=== PATIENT | female | born 1955 | race Caucasian/White ===

== ENCOUNTER 2019-11-06 11:39 | Emergency (ER) | payer BC ==
[~2019-11-06] VITALS: Ht 154.9 cm; Wt 75.3 kg
--- OUTSIDE RECORDS SUMMARY | 2019-11-06 11:42 | XMS ---
PreManage Notification: GABI MIRANDA Security Livestock Nutritionist Events No recent Security Events currently on file [facility] There are no care providers on record at this time. Mary has no Care Guidelines for this patient. Homero VISIT COUNT (12 MO.) 1 SE[facility] TOTAL 1 NOTE: Visits indicate total known visits. ED/UCC VISIT TRACKING (12 MO.) 11/06/2019 11:40 [facility] [place] TYPE: Emergency COMPLAINT: - RECTAL BLEEDING, ABD PAIN INPATIENT VISIT TRACKING (12 MO.) No inpatient visits to display in this time frame [id number]
== END 2019-11-06 14:00 | disposition home or self-care (01) ==
LOC: ED 11:39
DX: K92.1 Melena (principal); I10 Essential (primary) hypertension; E78.5 Hyperlipidemia, unspecified; Z87.891 Personal history of nicotine dependence; Z88.0 Allergy status to penicillin; Z88.2 Allergy status to sulfonamides
CPT/HCPCS: 85025; 99284

== ENCOUNTER 2021-04-19 19:00 | Emergency (ER) | payer BC ==
[~2021-04-19] VITALS: Ht 154.9 cm; Wt 64.9 kg
--- OUTSIDE RECORDS SUMMARY | 2021-04-19 19:02 | XMS ---
PreManage Notification: GABI MIRANDA Security Sanitation Worker Events No recent Security Events currently on file CRITERIA MET - [facility] CARE PROVIDERS CRAIG MCMANUS Physician Straightening Roll Operator 11/08/2019-Current PHONE: Unknown Mary has no Care Guidelines for this patient. [facility] VISIT COUNT (12 MO.) 1 SEAMUS Mcarthur TOTAL 1 NOTE: Visits indicate total known visits. ED/UCC VISIT TRACKING (12 MO.) 04/19/2021 19:00 [facility] [place] TYPE: Emergency COMPLAINT: - ABDOMINAL AND BACK PAIN INPATIENT VISIT TRACKING (12 MO.) No inpatient visits to display in this time frame [id number]
[2021-04-19] MEDS ORDERED: LOSARTAN POTAS100 MG PO (19:38)
[2021-04-19] MEDS ORDERED: METOPROLOL TART50 MG PO (19:39)
[2021-04-19] MEDS ORDERED: CETIRIZINE HCL10 MG PO (19:39)
[2021-04-19] MEDS ORDERED: METFORMIN HCL500 MG PO (19:39)
[2021-04-19] MEDS ORDERED: IMIPRAMINE HCL50 MG PO (19:39)
[2021-04-19] MEDS ORDERED: ATORVASTATIN CA40 MG PO (19:39)
[2021-04-19] MEDS ORDERED: ESCITALOPRAM OX10 MG PO (19:40)
[2021-04-19] MEDS ORDERED: OXYBUTYNIN CHLOR5 MG PO (19:40)
[2021-04-19] MEDS ORDERED: FLUTICASONE PRO16 GM NAS (19:40)
== END 2021-04-19 22:47 | disposition home or self-care (01) ==
LOC: ED 19:00
DX: R10.13 Epigastric pain (principal); I10 Essential (primary) hypertension; E78.5 Hyperlipidemia, unspecified; I71.4 Abdominal aortic aneurysm, without rupture; Z87.891 Personal history of nicotine dependence; Z88.0 Allergy status to penicillin; Z88.2 Allergy status to sulfonamides; Z88.8 Allergy status to other drugs, medicaments and biological substances; Z79.899 Other long term (current) drug therapy; Z79.84 Long term (current) use of oral hypoglycemic drugs
CPT/HCPCS: 80053; 81001; 83690; 85025; 85379; 99284

== ENCOUNTER 2022-03-24 17:06 | Emergency (ER) | payer OTHER ==
[~2022-03-24] VITALS: Ht 154.9 cm; Wt 67.1 kg
[~2022-03-24 17:06] MED LIST: ATORVASTATIN CA40 MG PO; CETIRIZINE HCL10 MG PO; ESCITALOPRAM OX10 MG PO; FLUTICASONE PRO16 GM NAS; IMIPRAMINE HCL50 MG PO; LOSARTAN POTAS100 MG PO; METFORMIN HCL500 MG PO; METOPROLOL TART50 MG PO; OXYBUTYNIN CHLOR5 MG PO
--- OUTSIDE RECORDS SUMMARY | 2022-03-24 17:10 | XMS ---
PreManage Notification: GABI MIRANDA Security Business Associate Events No recent Security Events currently on file CRITERIA MET - [facility] CARE PROVIDERS CRAIG MCMANUS Physician Mfts 11/08/2019-Current PHONE: Unknown Mary has no Care Guidelines for this patient. [facility] VISIT COUNT (12 MO.) 2 SEAMUS Mcarthur TOTAL 2 NOTE: Visits indicate total known visits. ED/UCC VISIT TRACKING (12 MO.) 03/24/2022 17:07 [facility] [place] TYPE: Emergency COMPLAINT: - LEGS ARE PAINFUL 04/19/2021 19:00 [facility] [place] TYPE: Emergency COMPLAINT: - ABDOMINAL AND BACK PAIN DIAGNOSES: - Epigastric pain - Abdominal aortic aneurysm, without rupture - Allergy status to sulfonamides - Other senior living (current) drug therapy - Allergy status to penicillin - Essential (primary) hypertension - Allergy status to other drugs, medicaments and biological substances - Hyperlipidemia, unspecified - Personal history of nicotine dependence - alf (current) use of oral hypoglycemic drugs INPATIENT VISIT TRACKING (12 MO.) No inpatient visits to display in this time frame [id number]
[2022-03-24] MEDS ORDERED: HYDROCHLOROTH12.5 MG PO (17:25)
[2022-03-24] MEDS ORDERED: GABAPENTIN300 MG PO (17:25)
[2022-03-24] MEDS ORDERED: ACYCLOVIR400 MG PO (17:25)
== END 2022-03-24 23:06 | disposition home or self-care (01) ==
LOC: ED 17:06
DX: M79.604 Pain in right leg (principal); M79.605 Pain in left leg; G89.29 Other chronic pain; M54.50 Low back pain, unspecified; I10 Essential (primary) hypertension; E78.5 Hyperlipidemia, unspecified; Z87.891 Personal history of nicotine dependence; Z91.041 Radiographic dye allergy status; Z88.0 Allergy status to penicillin; Z88.2 Allergy status to sulfonamides; Z79.899 Other long term (current) drug therapy; Z79.84 Long term (current) use of oral hypoglycemic drugs
CPT/HCPCS: 36415; 71275; 74174; 80053; 85025; 99284-25; J1200; J2930; Q9967

== ENCOUNTER 2022-09-27 13:55 | Emergency (ER) | payer MEDICARE, OTHER ==
[~2022-09-27] VITALS: Ht 154.9 cm; Wt 69.4 kg
[~2022-09-27 13:55] MED LIST changes: +ACYCLOVIR400 MG PO; +GABAPENTIN300 MG PO; +HYDROCHLOROTH12.5 MG PO
--- OUTSIDE RECORDS SUMMARY | 2022-09-27 13:58 | XMS ---
PreManage Notification: GABI MIRANDA Security Skin Care Specialist Events No recent Security Events currently on file CRITERIA MET - [facility] CARE PROVIDERS CRAIG MCMANUS Physician Life Science Research Assistant 11/08/2019-Current PHONE: Unknown Mary has no Care Guidelines for this patient. [facility] VISIT COUNT (12 MO.) 2 SEAMUS Mcarthur TOTAL 2 NOTE: Visits indicate total known visits. ED/UCC VISIT TRACKING (12 MO.) 09/27/2022 13:57 [facility] [place] TYPE: Emergency COMPLAINT: - UPPER ABD/BACK PAIN 03/24/2022 17:07 [facility] [place] TYPE: Emergency COMPLAINT: - LEGS ARE PAINFUL DIAGNOSES: - Low back pain, unspecified - Personal history of nicotine dependence - Other intermodal truck driver (current) drug therapy - Other chronic pain - Allergy status to penicillin - Allergy status to sulfonamides - Pain in left leg - Localized edema - [facility] (current) use of oral hypoglycemic drugs - Radiographic dye allergy status - Hyperlipidemia, unspecified - Pain in right leg - Essential (primary) hypertension INPATIENT VISIT TRACKING (12 MO.) No inpatient visits to display in this time frame [id number]
[2022-09-27] MEDS ORDERED: ONDANSETRON ODT8 MG PO (19:06)
[2022-09-27] MEDS ORDERED: OXYCODONE HCL5 MG PO (19:06)
== END 2022-09-27 19:18 | disposition home or self-care (01) ==
LOC: ED 13:55
DX: K83.1 Obstruction of bile duct (principal); I10 Essential (primary) hypertension; E78.5 Hyperlipidemia, unspecified; Z87.891 Personal history of nicotine dependence; Z88.0 Allergy status to penicillin; Z88.2 Allergy status to sulfonamides; Z91.041 Radiographic dye allergy status; Z79.899 Other long term (current) drug therapy; Z79.84 Long term (current) use of oral hypoglycemic drugs
CPT/HCPCS: 36415; 74177; 80053; 81003; 83690; 85025; 96361; 96374; 96375; 99284-25; J1200; J2405; J7030; Q9967

== ENCOUNTER 2023-06-05 23:45 | Emergency (ER) | payer MEDICARE, OTHER ==
[~2023-06-05] VITALS: Ht 154.9 cm; Wt 69.4 kg
[~2023-06-05 23:45] MED LIST changes: +ONDANSETRON ODT8 MG PO; +OXYCODONE HCL5 MG PO
--- OUTSIDE RECORDS SUMMARY | 2023-06-05 23:49 | XMS ---
PreManage Notification: GABI MIRANDA Security Cabin Worker Events No recent Security Events currently on file CRITERIA MET - [facility] CARE PROVIDERS CRAIG MCMANUS Physician Senior Game Designer 11/08/2019-Current PHONE: Unknown Mary has no Care Guidelines for this patient. [facility] VISIT COUNT (12 MO.) 2 SEAMUS Mcarthur TOTAL 2 NOTE: Visits indicate total known visits. ED/UCC VISIT TRACKING (12 MO.) 06/05/2023 23:46 [facility] [place] TYPE: Emergency COMPLAINT: - RECTAL BLEEDING 09/27/2022 13:57 [facility] [place] TYPE: Emergency COMPLAINT: - UPPER ABD/BACK PAIN DIAGNOSES: - Allergy status to penicillin - Allergy status to sulfonamides - Essential (primary) hypertension - Hyperlipidemia, unspecified - halfway (current) use of oral hypoglycemic drugs - Obstruction of bile duct - Other long wall shear operator (current) drug therapy - Personal history of nicotine dependence - Radiographic dye allergy status - Upper abdominal pain, unspecified INPATIENT VISIT TRACKING (12 MO.) No inpatient visits to display in this time frame [id number]
[2023-06-06 00:59] VITALS: BP 120/74
== END 2023-06-06 01:02 | disposition home or self-care (01) ==
LOC: ED 23:45
DX: K64.9 Unspecified hemorrhoids (principal); I10 Essential (primary) hypertension; R73.03 Prediabetes; E78.5 Hyperlipidemia, unspecified; Z87.891 Personal history of nicotine dependence; Z88.0 Allergy status to penicillin; Z88.2 Allergy status to sulfonamides; Z91.041 Radiographic dye allergy status; Z79.899 Other long term (current) drug therapy; Z79.84 Long term (current) use of oral hypoglycemic drugs
CPT/HCPCS: 99282

== ENCOUNTER 2023-09-17 15:48 | Emergency (ER) | payer MEDICARE ==
[~2023-09-17] VITALS: Ht 154.9 cm; Wt 73.8 kg
--- OUTSIDE RECORDS SUMMARY | 2023-09-17 15:51 | XMS ---
PreManage Notification: GABI MIRANDA Security Hydrotel Operator Events No recent Security Events currently on file CRITERIA MET - [facility] CARE PROVIDERS CRAIG MCMANUS Physician Gas Fitter 11/08/2019-Current PHONE: Unknown Mary has no Care Guidelines for this patient. [facility] VISIT COUNT (12 MO.) 3 SEAMUS Mcarthur TOTAL 3 NOTE: Visits indicate total known visits. ED/UCC VISIT TRACKING (12 MO.) 09/17/2023 15:49 [facility] [place] TYPE: Emergency COMPLAINT: - ABD PAIN, SOB, COUGH 06/05/2023 23:46 [facility] [place] TYPE: Emergency COMPLAINT: - RECTAL BLEEDING DIAGNOSES: - Allergy status to penicillin - Allergy status to sulfonamides - Essential (primary) hypertension - Hyperlipidemia, unspecified - termite inspector (current) use of oral hypoglycemic drugs - Other superintendent container terminal (current) drug therapy - Personal history of nicotine dependence - Prediabetes - Radiographic dye allergy status - Unspecified hemorrhoids 09/27/2022 13:57 [facility] [place] TYPE: Emergency COMPLAINT: - UPPER ABD/BACK PAIN DIAGNOSES: - Allergy status to penicillin - Allergy status to sulfonamides - Essential (primary) hypertension - Hyperlipidemia, unspecified - termite inspector (current) use of oral hypoglycemic drugs - Obstruction of bile duct - Other superintendent container terminal (current) drug therapy - Personal history of nicotine dependence - Radiographic dye allergy status - Upper abdominal pain, unspecified INPATIENT VISIT TRACKING (12 MO.) No inpatient visits to display in this time frame [id number]
[2023-09-17] MEDS ORDERED: ondansetron HCL 4 MG/2 ML VIAL IV ONE (16:15)
[2023-09-17 16:22] LABS: BASOPHILS 1.2 % (0-2); EOSINOPHILS 5.9 % (0-6); HEMATOCRIT 39.7 % (35.0-50.0); HEMOGLOBIN 13.2 g/dL (12.0-18.0); LYMPHOCYTES 34.1 % (24-44); MCH 29.3 (27-36); MCHC 33.4 g/dl (30-36); MCV 87.8 fl (81-99); MONOCYTES 9.4 % (0-12); NEUTROPHILS 49.4 % (39-80); PLATELET COUNT 174 K/uL (140-440); RBC 4.52 M/ul (4.3-5.7); RDW 15.2 (10.5-15.0)
[2023-09-17 16:33] LABS: ALBUMIN 3.1 g/dL (3.4-5.0); ALBUMIN/GLOBULIN RATIO 0.94 (1.1-2.4); ANION GAP 11.6 (7-21); BILIRUBIN, TOTAL 0.5 ng/dL (0.2-1.0); BUN/CREATININE RATIO 25.6 (6.0-28.6); CALCIUM 10.3 mg/dL (8.5-10.1); CREATININE, SERUM 0.82 mg/dL (0.55-1.02); POTASSIUM 3.6 mmol/L (3.5-5.1); PROTEIN, TOTAL 6.4 g/dL (6.4-8.2)
[2023-09-17] MEDS ORDERED: diphenhydrAMINE HCL 50 MG/ML VIAL IV ONE (17:00)
[2023-09-17 18:30] LABS: BILIRUBIN, URINE NEGATIVE (negative); BLOOD/HGB, URINE NEGATIVE (Negative); KETONE, URINE NEGATIVE (Negative); LEUK ESTERASE, URINE NEGATIVE (negative); NITRITE, URINE NEGATIVE (negative)
[2023-09-17 18:57] VITALS: BP 131/79
== END 2023-09-17 18:58 | disposition home or self-care (01) ==
LOC: ED 15:48
PROVIDERS: Emergency Medicine
DX: B34.9 Viral infection, unspecified (principal); R10.9 Unspecified abdominal pain; I10 Essential (primary) hypertension; R73.03 Prediabetes; E78.5 Hyperlipidemia, unspecified; Z87.891 Personal history of nicotine dependence; Z88.0 Allergy status to penicillin; Z88.2 Allergy status to sulfonamides; Z91.041 Radiographic dye allergy status; Z79.899 Other long term (current) drug therapy
CPT/HCPCS: 36415; 71045; 74174; 80053; 81003; 83690; 83880; 84484; 85025; 96375; 99284-25; J1200; J2405; Q9967

== ENCOUNTER 2024-04-22 21:26 | Emergency (ER) | payer OTHER, MEDICARE ==
[~2024-04-22] VITALS: Ht 154.9 cm; Wt 67.5 kg
[2024-04-22 22:05] LABS: BASOPHILS 0.9 % (0-2); EOSINOPHILS 9.2 % (0-6); HEMOGLOBIN 13.8 g/dL (12.0-18.0); LYMPHOCYTES 34.8 % (24-44); MCH 29.2 (27-36); MCHC 32.9 g/dl (30-36); MCV 88.9 fl (81-99); NEUTROPHILS 47.1 % (39-80); PLATELET COUNT 223 K/uL (140-440); RBC 4.72 M/ul (4.3-5.7); RDW 15.7 (10.5-15.0)
[2024-04-22 22:20] LABS: ALBUMIN 3.5 g/dL (3.4-5.0); ALBUMIN/GLOBULIN RATIO 1.13 (1.1-2.4); ANION GAP 16.3 (7-21); BILIRUBIN, TOTAL 0.3 ng/dL (0.2-1.0); BUN/CREATININE RATIO 29.12 (6.0-28.6); CALCIUM 10.6 mg/dL (8.5-10.1); CREATININE, SERUM 1.03 mg/dL (0.55-1.02); POTASSIUM 3.3 mmol/L (3.5-5.1); PROTEIN, TOTAL 6.6 g/dL (6.4-8.2)
[2024-04-23] MEDS ORDERED: TRAMADOL HCL50 MG PO (00:58)
[2024-04-23] MEDS ORDERED: TRAMADOL HCL 50 MG HOME.PACK PO ONE (01:00)
[2024-04-23] MEDS ORDERED: CEPHALEXIN500 M1 PO (01:02)
[2024-04-23] MEDS ORDERED: CEPHALEXIN MONOHYDRATE 500 MG HOME.PACK PO ONE (01:15)
[2024-04-23 01:20] VITALS: BP 137/77
== END 2024-04-23 01:20 | disposition home or self-care (01) ==
LOC: ED 21:26
PROVIDERS: Family Medicine
DX: S02.2XXA Fracture of nasal bones, initial encounter for closed fracture (principal); W01.0XXA Fall on same level from slipping, tripping and stumbling without subsequent striking against object, initial encounter; I10 Essential (primary) hypertension; R73.03 Prediabetes; E78.5 Hyperlipidemia, unspecified; Z87.891 Personal history of nicotine dependence; Z88.0 Allergy status to penicillin; Z88.2 Allergy status to sulfonamides; Z91.041 Radiographic dye allergy status; Z79.899 Other long term (current) drug therapy; Z79.84 Long term (current) use of oral hypoglycemic drugs
CPT/HCPCS: 36415; 70450; 70486; 72125; 80053; 85025; 99284-25; A9270

== ENCOUNTER 2024-05-22 09:39 | Emergency (ER) | payer MEDICARE ==
[~2024-05-22] VITALS: Ht 154.9 cm; Wt 63.3 kg
[~2024-05-22 09:39] MED LIST changes: +CEPHALEXIN500 M1 PO; +TRAMADOL HCL50 MG PO
--- OUTSIDE RECORDS SUMMARY | 2024-05-22 09:46 | XMS ---
PreManage Notification: GABI MIRANDA Security Computer Operations Manager Events No recent Security Events currently on file CRITERIA MET - [facility] - 2 Visits in 30 Days CARE PROVIDERS CRAIG MCMANUS Physician Sand Car Worker 11/08/2019-Current PHONE: Unknown Mary has no Care Guidelines for this patient. Homero VISIT COUNT (12 MO.) 4 [facility] TOTAL 4 NOTE: Visits indicate total known visits. ED/UCC VISIT TRACKING (12 MO.) 05/22/2024 09:40 [facility] [place] TYPE: Emergency COMPLAINT: - ABD PAIN 04/22/2024 21:27 [facility] [place] TYPE: Emergency COMPLAINT: - FALL DIAGNOSES: - Allergy status to penicillin - Allergy status to sulfonamides - Essential (primary) hypertension - Fall on same level from slipping, tripping and stumbling without subsequent striking against object, initial encounter - Fracture of nasal bones, initial encounter for closed fracture - Hyperlipidemia, unspecified - regional intermodal truck driver (current) use of oral hypoglycemic drugs - Other local intermodal truck driver (current) drug therapy - Personal history of nicotine dependence - Prediabetes - Radiographic dye allergy status 09/17/2023 15:49 [facility] [place] TYPE: Emergency COMPLAINT: - ABD PAIN, SOB, COUGH DIAGNOSES: - Allergy status to penicillin - Allergy status to sulfonamides - Cough, unspecified - Essential (primary) hypertension - Hyperlipidemia, unspecified - Other local intermodal truck driver (current) drug therapy - Personal history of nicotine dependence - Prediabetes - Radiographic dye allergy status - Unspecified abdominal pain - Viral infection, unspecified 06/05/2023 23:[address] [facility] [place] TYPE: Emergency COMPLAINT: - RECTAL BLEEDING DIAGNOSES: - Allergy status to penicillin - Allergy status to sulfonamides - Essential (primary) hypertension - Hyperlipidemia, unspecified - group home (current) use of oral hypoglycemic drugs - Other local intermodal truck driver (current) drug therapy - Personal history of nicotine dependence - Prediabetes - Radiographic dye allergy status - Unspecified hemorrhoids INPATIENT VISIT TRACKING (12 MO.) No inpatient visits to display in this time frame [id number]
[2024-05-22] MEDS ORDERED: HYDROmorphone HCL 1 MG/ML SYR IV ONE (10:00)
[2024-05-22] MEDS ORDERED: SODIUM CHLORIDE 0.9% 1,000 ML IV ONE (10:00)
[2024-05-22] MEDS ORDERED: ondansetron HCL 4 MG/2 ML VIAL IV ONE (10:00)
[2024-05-22 10:13] LABS: BASOPHILS 0.9 % (0-2); EOSINOPHILS 8.7 % (0-6); HEMATOCRIT 43.4 % (35.0-50.0); HEMOGLOBIN 14.7 g/dL (12.0-18.0); LYMPHOCYTES 35.3 % (24-44); MCH 30.6 (27-36); MCHC 33.8 g/dl (30-36); MCV 90.4 fl (81-99); MONOCYTES 8.8 % (0-12); NEUTROPHILS 46.3 % (39-80); PLATELET COUNT 204 K/uL (140-440); RDW 15.4 (10.5-15.0)
[2024-05-22 10:27] LABS: ALBUMIN 3.7 g/dL (3.4-5.0); ALBUMIN/GLOBULIN RATIO 1.12 (1.1-2.4); ANION GAP 14.4 (7-21); BILIRUBIN, TOTAL 0.6 ng/dL (0.2-1.0); BUN/CREATININE RATIO 27.55 (6.0-28.6); CALCIUM 10.9 mg/dL (8.5-10.1); CREATININE, SERUM 0.98 mg/dL (0.55-1.02); POTASSIUM 3.4 mmol/L (3.5-5.1)
[2024-05-22 10:59] LABS: BILIRUBIN, URINE NEGATIVE (negative); BLOOD/HGB, URINE NEGATIVE (Negative); KETONE, URINE TRACE (Negative); LEUK ESTERASE, URINE SMALL (negative); NITRITE, URINE POSITIVE (negative); PH, URINE 6.5 (5-7)
[2024-05-22 11:04] LABS: EPITHELIAL CELLS, URINE SQUAMOUS 1+ /lpf (0-1+)
[2024-05-22 11:05] LABS: BACTERIA, URINE 3+ /hpf (negative); CASTS, URINE NONE SEEN \\lpf; COLLECTION TYPE, URINE CLEAN CATCH; CRYSTALS, URINE NONE SEEN (0-1+); RED BLOOD CELLS, URINE 0-1 /hpf (0-5); REFLEX CULTURE, URINE Yes (No); WHITE BLOOD CELLS, URINE >50 /HPF (0-5)
[2024-05-22] MEDS ORDERED: CEFTRIAXONE/SODIUM CHLORIDE 1 GM/100 ML PIGGYBACK IV ONE (11:45)
[2024-05-22] MEDS ORDERED: CEFDINIR300 MG PO (12:16)
[2024-05-22 12:21] VITALS: BP 133/89
--- NOTE | 2024-05-22 21:26 | EKG ---
[facility] [address] [facility] [place] [address] Signed Sinus bradycardia Left ventricular hypertrophy with repolarization abnormality ( R in aVL , [place] product ) Inferior infarct , age undetermined Abnormal ECG No previous ECGs available Confirmed by Kenyetta Wong MD () on 05/22/2024 9:26:06 PM Electronically Signed By: KENYETTA WONG MD 05/22/242125 PATIENT NAME: LANE MIRANDALaura DAILEY Electrocardiogram DATE OF : 55 PHYSICIAN: KENYETTA WONG MD REPORT #: [id number] REPORT IS CONFIDENTIAL AND NOT TO BE RELEASED WITHOUT AUTHORIZATION
== END 2024-05-22 12:21 | disposition home or self-care (01) ==
LOC: ED 09:39
PROVIDERS: Emergency Medicine
DX: R10.12 Left upper quadrant pain (principal); N39.0 Urinary tract infection, site not specified; I71.43 Infrarenal abdominal aortic aneurysm, without rupture; I10 Essential (primary) hypertension; R73.03 Prediabetes; E78.5 Hyperlipidemia, unspecified; Z87.891 Personal history of nicotine dependence; Z88.2 Allergy status to sulfonamides; Z88.0 Allergy status to penicillin; Z91.041 Radiographic dye allergy status; Z79.899 Other long term (current) drug therapy
CPT/HCPCS: 36415; 74176; 80053; 81001; 83690; 84484; 85025; 87077; 87088; 87186; 93005; 93010; 96374; 96375; 99284-25; J0696; J2405; J7030

== ENCOUNTER 2024-10-11 16:25 | Emergency (ER) | payer MEDICARE ==
[~2024-10-11] VITALS: Ht 154.9 cm; Wt 69.4 kg
[~2024-10-11 16:25] MED LIST changes: +CEFDINIR300 MG PO
--- OUTSIDE RECORDS SUMMARY | 2024-10-11 16:32 | XMS ---
PreManage Notification: GABI MIRANDA Security Skein Tier Events No recent Security Events currently on file CRITERIA MET - [facility] - 2 Visits in 30 Days CARE PROVIDERS CRAIG MCMANUS I. Physician Certified Pharmacist Assistant 11/08/2019-Current PHONE: [phone] Mary has no Care Guidelines for this patient. Homero VISIT COUNT (12 MO.) [address] TOTAL 4 NOTE: Visits indicate total known visits. ED/UCC VISIT TRACKING (12 MO.) 10/11/2024 16:25 [facility] [place] TYPE: Emergency COMPLAINT: - LEG SWELLING 09/30/2024 19:11 [facility] [place] TYPE: Emergency DIAGNOSES: - Chest pain, unspecified - Generalized abdominal pain - Infrarenal abdominal aortic aneurysm, without rupture - Type 2 diabetes mellitus with hyperglycemia - Chest Pain 05/22/2024 09:40 [facility] [place] TYPE: Emergency COMPLAINT: - ABD PAIN DIAGNOSES: - Allergy status to penicillin - Allergy status to sulfonamides - Epigastric pain - Essential (primary) hypertension - Hyperlipidemia, unspecified - Infrarenal abdominal aortic aneurysm, without rupture - Left upper quadrant pain - Other group home (current) drug therapy - Personal history of nicotine dependence - Prediabetes - Radiographic dye allergy status - Urinary tract infection, site not specified 04/22/2024 21:27 [facility] [place] TYPE: Emergency COMPLAINT: - FALL DIAGNOSES: - Allergy status to penicillin - Allergy status to sulfonamides - Essential (primary) hypertension - Fall on same level from slipping, tripping and stumbling without subsequent striking against object, initial encounter - Fracture of nasal bones, initial encounter for closed fracture - Hyperlipidemia, unspecified - [facility] (current) use of oral hypoglycemic drugs - Other group home (current) drug therapy - Personal history of nicotine dependence - Prediabetes - Radiographic dye allergy status INPATIENT VISIT TRACKING (12 MO.) 10/01/2024 04:43 [facility] [place] TYPE: Medical Surgical DIAGNOSES: - Infrarenal abdominal aortic aneurysm, without rupture - AAA [id number]
[2024-10-11] MEDS ORDERED: AMLODIPINE BESYL5 MG PO (16:39)
[2024-10-11 18:07] LABS: EOSINOPHILS 5.2 % (0-6); HEMATOCRIT 30.7 % (35.0-50.0); HEMOGLOBIN 10.2 g/dL (12.0-18.0); LYMPHOCYTES 18.1 % (24-44); MCH 28.4 (27-36); MCHC 33.2 g/dl (30-36); MCV 85.3 fl (81-99); MONOCYTES 7.5 % (0-12); NEUTROPHILS 68.2 % (39-80); PLATELET COUNT 211 K/uL (140-440); RDW 15.9 (10.5-15.0)
[2024-10-11 18:28] LABS: ALBUMIN 2.5 g/dL (3.4-5.0); ALBUMIN/GLOBULIN RATIO 0.69 (1.1-2.4); BILIRUBIN, TOTAL 0.2 mg/dL (0.2-1.0); CALCIUM 10.4 mg/dL (8.5-10.1); CREATININE, SERUM 0.6 mg/dL (0.55-1.02); PROTEIN, TOTAL 6.1 g/dL (6.4-8.2)
[2024-10-11 19:19] LABS: BILIRUBIN, URINE NEGATIVE (negative); BLOOD/HGB, URINE TRACE-I (Negative); KETONE, URINE NEGATIVE (Negative); LEUK ESTERASE, URINE NEGATIVE (negative); NITRITE, URINE POSITIVE (negative); PH, URINE 5.5 (5-7)
[2024-10-11 19:31] LABS: BACTERIA, URINE 3+ /hpf (negative); CASTS, URINE NONE SEEN \\lpf; COLLECTION TYPE, URINE CLEAN CATCH; CRYSTALS, URINE NONE SEEN (0-1+); EPITHELIAL CELLS, URINE NONE SEEN /lpf (0-1+); RED BLOOD CELLS, URINE 0-1 /hpf (0-5); REFLEX CULTURE, URINE Yes (No)
[2024-10-11 19:45] VITALS: BP 121/73
--- NOTE | 2024-10-13 19:41 | EKG ---
[facility] [address] [place] [address] Signed Normal sinus rhythm Moderate voltage criteria for LVH, may be normal variant ( R in aVL , [place] product ) Inferior infarct (cited on or before 22-MAY-2024) T wave abnormality, consider lateral ischemia Abnormal ECG When compared with ECG of 22-MAY-2024 10:24, Vent. rate has increased BY 30 BPM T wave inversion less evident in Lateral leads Confirmed by Jeronimo Patel MD ([id number]) on 10/13/2024 7:41:45 PM Electronically Signed By: JERONIMO PATEL MD 10/13/241940 PATIENT NAME: GABI MIRANDA Electrocardiogram DATE OF : 55 PHYSICIAN: JERONIMO PATEL MD REPORT #: [id number] REPORT IS CONFIDENTIAL AND NOT TO BE RELEASED WITHOUT AUTHORIZATION
== END 2024-10-11 19:45 | disposition home or self-care (01) ==
LOC: ED 16:25
PROVIDERS: Emergency Medicine
DX: R60.0 Localized edema (principal); I10 Essential (primary) hypertension; R73.03 Prediabetes; E78.5 Hyperlipidemia, unspecified; Z87.891 Personal history of nicotine dependence; Z91.041 Radiographic dye allergy status; Z88.2 Allergy status to sulfonamides; Z88.0 Allergy status to penicillin; Z79.84 Long term (current) use of oral hypoglycemic drugs; Z79.899 Other long term (current) drug therapy
CPT/HCPCS: 36415; 71045; 80053; 81001; 83880; 85025; 87088; 93005; 93010; 99285-25

== ENCOUNTER 2025-01-16 21:23 | Emergency (ER) | payer MEDICARE ==
[~2025-01-16] VITALS: Ht 152.4 cm; Wt 69.3 kg
[~2025-01-16 21:23] MED LIST changes: +AMLODIPINE BESYL5 MG PO
[2025-01-16] MEDS ORDERED: TRAMADOL HCL 50 MG TAB PO ONE (22:15)
[2025-01-16] MEDS ORDERED: ACYCLOVIR200 MG PO (22:45)
[2025-01-16] MEDS ORDERED: HYDROCODON-ACE1 EA10 PO (23:37)
[2025-01-16] MEDS ORDERED: HYDROCODONE BIT/ACETAMINOPHEN 5/325 MG 1 TAB HOME.PACK PO ONE (23:45)
[2025-01-17 00:05] VITALS: BP 134/69
== END 2025-01-17 00:07 | disposition home or self-care (01) ==
LOC: ED 21:23
DX: S22.31XA Fracture of one rib, right side, initial encounter for closed fracture (principal); I10 Essential (primary) hypertension; E78.5 Hyperlipidemia, unspecified; W18.30XA Fall on same level, unspecified, initial encounter; Z79.899 Other long term (current) drug therapy; Z91.041 Radiographic dye allergy status; Z88.2 Allergy status to sulfonamides; Z88.0 Allergy status to penicillin; Z87.891 Personal history of nicotine dependence
CPT/HCPCS: 71101; 94799; 99283-25; A9270

== ENCOUNTER 2025-07-26 10:39 | Observation (INO) | payer MEDICARE, OTHER ==
[~2025-07-26] VITALS: Ht 152.4 cm; Wt 65.0 kg
[~2025-07-26 10:39] MED LIST changes: +ACYCLOVIR200 MG PO; +HYDROCODON-ACE1 EA10 PO
[2025-07-26] MEDS ORDERED: SODIUM CHLORIDE 0.9% 1,000 ML IV PRN (11:15)
[2025-07-26] MEDS ORDERED: MORPHINE SULFATE 4 MG/ML VIAL IV ONE ×2 (11:15→16:00)
[2025-07-26 11:44] LABS: ALT (SGPT) 314.0 U/L (14-59); AST (SGOT) 141.0 U/L (15-37); GLOMERULAR FILTRATION RATE,EST 83.0 mL/min (>60); PROTEIN, TOTAL 6.4 g/dL (6.4-8.2); UREA NITROGEN 16.0 mg/dL (7-18)
[2025-07-26 12:38] LABS: CORONAVIRUS COVID-19 AG NEGATIVE (NEGATIVE)
[2025-07-26 13:11] LABS: BASOPHILS 0.4 % (0.1-1.2); EOSINOPHILS 1.3 % (0.7-5.8); LYMPHOCYTES 11.9 % (19.3-51.7); MCH 24.9 PG (25.6-32.2); MCHC 31.4 g/dL (32.2-35.5); MCV 79.3 fL (79.4-94.8); MONOCYTES 7.4 % (4.7-12.5); NEUTROPHILS 78.3 % (34.0-71.1); RBC 4.74 M/uL (3.93-5.22)
[2025-07-26] MEDS ORDERED: DEXAMETHASONE SOD PHOS 10 MG/ML VIAL IV ONE (14:00)
[2025-07-26 14:08] LABS: BLOOD/HGB, URINE NEGATIVE (Negative); KETONE, URINE TRACE (Negative); LEUK ESTERASE, URINE MODERATE (negative); NITRITE, URINE NEGATIVE (negative)
[2025-07-26 14:14] LABS: BACTERIA, URINE NONE SEEN /hpf (negative); CASTS, URINE NONE SEEN \\lpf; CRYSTALS, URINE NONE SEEN (0-1+); REFLEX CULTURE, URINE No (No)
[2025-07-26 14:19] LABS: EPITHELIAL CELLS, URINE SQUAMOUS 2+ /lpf (0-1+)
[2025-07-26] MEDS ORDERED: SODIUM CHLORIDE 0.9% 1,000 ML IV SCH (19:45)
[2025-07-26 20:44] LABS: ALT (SGPT) 373.0 U/L (14-59); AST (SGOT) 231.0 U/L (15-37); GLOMERULAR FILTRATION RATE,EST 95.0 mL/min (>60); PROTEIN, TOTAL 6.5 g/dL (6.4-8.2); UREA NITROGEN 14.0 mg/dL (7-18)
[2025-07-26] MEDS ORDERED: LACTATED RINGER'S 1,000 ML IV SCH ×3 (21:15→23:30)
[2025-07-26 21:32] LABS: BASOPHILS 0.1 % (0.1-1.2); EOSINOPHILS 0 % (0.7-5.8); LYMPHOCYTES 5.5 % (19.3-51.7); MCH 24.6 PG (25.6-32.2); MCHC 30.5 g/dL (32.2-35.5); MCV 80.7 fL (79.4-94.8); MONOCYTES 1.6 % (4.7-12.5); NEUTROPHILS 91.7 % (34.0-71.1); RBC 4.51 M/uL (3.93-5.22)
[2025-07-26 21:57] LABS: INR 1.04 (0.80-1.30); PROTIME 13.2 Sec (11.2-14.2)
[2025-07-26] MEDS ORDERED: MORPHINE SULFATE 4 MG/ML VIAL IV PRN (22:15)
[2025-07-26] MEDS ORDERED: FAMOTIDINE 20 MG/ 2 ML VIAL IV ONE (22:15)
[2025-07-26] MEDS ORDERED: METOPROLOL TARTRATE 50 MG TAB PO SCH (23:15)
[2025-07-26] MEDS ORDERED: DEXTROSE 5% 1,000 ML IV PRN (23:30)
[2025-07-26] MEDS ORDERED: GLUCAGON,HUMAN RECOMBINANT 1 MG/ML VIAL SUB-Q PRN (23:30)
[2025-07-26] MEDS ORDERED: IBLOOD GLUCOSE TEST STRIP 1 EA TEST XX PRN (23:30)
[2025-07-26] MEDS ORDERED: ACETAMINOPHEN 325 MG TAB PO PRN (23:30)
[2025-07-26] MEDS ORDERED: DEXTROSE 50% 50 ML SYR IV PRN ×2 (23:30)
[2025-07-27 00:14] VITALS: BP 153/66
[2025-07-27] MEDS ORDERED: OMEPRAZOLE20 MG PO (00:26)
[2025-07-27] MEDS ORDERED: ASPIRIN81 MG PO (00:27)
--- NOTE | 2025-07-27 00:45 | NUR ---
PT TO ROOM WITH ED APPROX 2400 WITH ED RN VIA STRETCHER. PT ALERT AND ORIENTED. UP TO BR WITH MINIMAL SBA TO VOID. GAIT STEADY. BACK TO BED, PUSHPA WELL. VS OBTAINED. ADMISSION COMPLETE. PT DENIES PAIN AT THIS TIME. SLIGHT NAUSEA REPORTED, DENIES PRN N/V WHEN OFFERED. BOWEL TONES ACTIVE. ABD SOFT. CPOX AND TELE IN PLACE. SpO2 88-94% ON RA. 2L/NC PLACED. IVF INFUSING PER ORDER. WARM BLANKET PROVIDED. PT ORIENTED TO ROOM AND NURSE CALL LIGHT. PT DENIES QUESTIONS OR CONCERNS. CALL LIGHT IN REACH.
--- NOTE | 2025-07-27 02:15 | NUR ---
IV PUMP ALARMING. ISSUE RESOLVED. PT REPORTS SHE IS RESTING COMFORTABLY. DENIES NEEDS. CALL LIGHT IN REACH.
--- NOTE | 2025-07-27 03:34 | NUR ---
PT LYING ON LEFT SIDE RESTING WITH EYES CLOSED. RESPIRATIONS EVEN. SpO2 96% ON 2L/NC. HR 70'S.
[2025-07-27 05:22] VITALS: BP 131/73
[2025-07-27 05:24] VITALS: BP 131/73
[2025-07-27 05:30] LABS: BASOPHILS 0.1 % (0.1-1.2); EOSINOPHILS 0 % (0.7-5.8); LYMPHOCYTES 8.0 % (19.3-51.7); MCH 24.9 PG (25.6-32.2); MCHC 31.3 g/dL (32.2-35.5); MCV 79.8 fL (79.4-94.8); MONOCYTES 4.6 % (4.7-12.5); NEUTROPHILS 86.8 % (34.0-71.1); RBC 4.25 M/uL (3.93-5.22)
--- NOTE | 2025-07-27 05:47 | NUR ---
LAB IN FOR MORNING DRAW. VS AND I&O OBTAINED. PT UP TO BR TO VOID WITH MINIMAL SBA. BACK TO BED. PT REPORTS INCREASED PAIN AND NAUSEA AFTER AMBULATION. PRN FOR PAIN AND N/V ADMIN PER EMAR. 2L/NC IN PLACE. SpO2 LOW 90'S. CPOX IN PLACE. NO FURTHER NEEDS. BED ALARM FOR SAFETY. CALL LIGHT IN REACH.
[2025-07-27 05:55] LABS: ALT (SGPT) 291.0 U/L (14-59); AST (SGOT) 132.0 U/L (15-37); GLOMERULAR FILTRATION RATE,EST 99.0 mL/min (>60); PROTEIN, TOTAL 5.9 g/dL (6.4-8.2); UREA NITROGEN 16.0 mg/dL (7-18)
--- NOTE | 2025-07-27 07:52 | NUR ---
PATIENT IN BED AT THIS TIME. INTEGRATION ENGINEER CHARTED HOURLY ROUNDS AND BLOOR SUGAR. CALL LIGHT WITHIN REACH, NO FURTHER NEEDS.
[2025-07-27] MEDS ORDERED: INSULIN LISPRO 100 UNIT/ML ML SUB-Q SCH (08:00)
[2025-07-27] MEDS ORDERED: IBLOOD GLUCOSE TEST STRIP 1 EA TEST VI SCH (08:00)
[2025-07-27 08:14] VITALS: BP 121/58
[2025-07-27 08:17] VITALS: BP 121/58
[2025-07-27] MEDS ORDERED: AMLODIPINE BESYLATE 5 MG TAB PO SCH (09:00)
[2025-07-27] MEDS ORDERED: LOSARTAN POTASSIUM 100 MG TAB PO SCH (09:00)
[2025-07-27] MEDS ORDERED: PANTOPRAZOLE SODIUM 40 MG TABEC PO SCH (09:00)
[2025-07-27 09:07] VITALS: BP 114/54
--- NOTE | 2025-07-27 09:11 | NUR ---
PATIENT IN CHAIR AT THIS TIME. SCRAP BREAKER CHARTED VITALS AND I&O'S. CALL LIGHT WITHIN REACH, NO FURTHER NEEDS.
--- NOTE | 2025-07-27 09:15 | NUR ---
PATIENT ABLE TO INDEPENDENTLY BRUSH TEETH. PATIENT BACK IN CHAIR. CALL LIGHT WITHIN REACH, NO FURTHRE NEEDS.
--- NOTE | 2025-07-27 10:04 | NUR ---
UR CLINICAL REVIEW: 2 MN FOR [facility]ERSALUS-PER ELECTRONIC COMPONENTS ASSEMBLER MEETS OBS FOR ABD WITH NEED FOR IVF, SERIAL LABS, IV PAIN MANAGEMENT AND FURTHER EVAL OBS 07/26/25 @ 0102 ORDER MATCHES REG NO AUTH REQUIRED PER MEDICARE GUIDELINES DISCHARGE TO HOME LIKELY TODAY 07/28/25
--- NOTE | 2025-07-27 11:23 | NUR ---
THIS COUNTY HOME DEMONSTRATOR ASSISTED PATIENT WITH GETTING READY FOR SHOWER. THIS COUNTY HOME DEMONSTRATOR CHANGED PATIENTS LINENS. CALL LIGHT WITHIN REACH, NO FURTHER NEEDS.
[2025-07-27] MEDS ORDERED: SUDOGEST60 MG PO (11:24)
[2025-07-27] MEDS ORDERED: ALENDRONATE SOD70 MG PO (11:25)
[2025-07-27] MEDS ORDERED: ACYCLOVIR400 MG PO (11:25)
[2025-07-27] MEDS ORDERED: BUPROPION XL150 MG PO (11:25)
[2025-07-27] MEDS ORDERED: HYDROCHLOROTH12.5 MG (11:28)
[2025-07-27] MEDS ORDERED: PHARMACY RENAL DOSE ADJUSTMENT 1 DOSE MISC PO SCH (12:00)
[2025-07-27 12:40] LABS: ALT (SGPT) 280.0 U/L (14-59); AST (SGOT) 120.0 U/L (15-37); PROTEIN, TOTAL 6.4 g/dL (6.4-8.2)
[2025-07-27] MEDS ORDERED: AMOX TR-K CLV1 EACH PO (13:07)
[2025-07-27] MEDS ORDERED: LEVOFLOXACIN750 MG PO (13:24)
--- NOTE | 2025-07-27 13:45 | NUR ---
DISCUSSED DISCHARGE INSTRUCTIONS WITH PT, PT VERBALIZES UNDERSTANDING. IV REMOVED, TIP INTACT, GAUZE AND COBAN DRESSING APPLIED TO SITE, PT TOLERATED WELL. VSS. PT DRESSES SELF, TOLERATES ACTIVITY WELL. PT ESCORTED TO PRIVATE CAR VIA WHEEL CHAIR.
== END 2025-07-27 13:45 | disposition home or self-care (01) ==
LOC: ED 10:39 → MS 10:40
PROVIDERS: Emergency Medicine; ADMIT Internal Medicine; ATTEND Internal Medicine
DX: N39.0 Urinary tract infection, site not specified (principal); E11.9 Type 2 diabetes mellitus without complications; E78.00 Pure hypercholesterolemia, unspecified; I10 Essential (primary) hypertension; K83.1 Obstruction of bile duct; K85.90 Acute pancreatitis without necrosis or infection, unspecified; Z79.2 Long term (current) use of antibiotics; Z79.82 Long term (current) use of aspirin; Z79.899 Other long term (current) drug therapy; Z87.891 Personal history of nicotine dependence; Z88.0 Allergy status to penicillin; Z88.2 Allergy status to sulfonamides; Z91.041 Radiographic dye allergy status
CPT/HCPCS: 36415; 74177; 74181; 76705; 80053; 80076; 81001; 83690; 83735; 85025; 85610; 96361; 96365; 96374; 96375; 96376; 99284-25; A9270; G0378; J0696; J1100; J1200; J2270; J2405; J7030; J7121; Q9967